=== PATIENT | female | born 1945 | race African-American/Black ===

== ENCOUNTER 2019-06-19 05:50 | Emergency (ER) | payer OTHER ==
--- NOTE | 2019-06-19 07:13 | ER ---
Nurse's Notes [facility] Name: Jose David Santana Age: 73 yrs Sex: Female : 1945 Arrival Date: 06/19/2019 Time: 05:52 Bed 8 Private MD: Diagnosis: Essential (primary) hypertension Presentation: 06/19 06:08 Presenting complaint: Patient states: she has a hx of HTN and for the past few days her aa1 BP has been fluctuating upwards of the 150's/90's. Denies any CP, SOB, or dizziness. Transition of care: patient was not received from another setting of care. Onset of symptoms was May 16, 2019. Risk Assessment: Do you want to hurt yourself or someone else? Patient reports no desire to harm self or others. Initial Sepsis Screen: Does the patient meet any 2 criteria? No. Patient's initial sepsis screen is negative. Does the patient have a suspected source of infection? No. Patient's initial sepsis screen is negative. Care prior to arrival: None. 06:08 Method Of Arrival: Ambulatory aa1 06:08 Acuity: ANDREA 3 aa1 Historical: - Allergies: 06:12 No Known Allergies; aa1 - Home Meds: 06:12 aspirin 81 mg Oral TbEC 1 tab once daily [Active]; metformin 850 mg Oral tab 1 tab 2 aa1 times per day [Active]; Simvastatin Oral once daily [Active]; losartan oral oral [Active]; Chlorthalidone Oral [Active]; - PMHx: 06:12 Diabetes - NIDDM; Hypertension; CVA; aa1 - PSHx: 06:12 Hysterectomy; cyst removal from breast; aa1 - Immunization history:: Flu vaccine is not up to date. - Coronavirus screen:: The patient has NOT traveled to [place], [place], or [place] in the past 14 days. Proceed with normal triage process as indicated. - Social history:: Smoking status: Patient denies any tobacco usage or history of. - Ebola Screening: : No symptoms or risks identified at this time. Screenin:13 Abuse screen: Denies threats or abuse. Denies injuries from another. Nutritional aa1 screening: No deficits noted. Tuberculosis screening: No symptoms or risk factors identified. Fall Risk None identified. Assessment: 06:13 General: Appears in no apparent distress. comfortable, Behavior is calm, cooperative, aa1 appropriate for age. Pain: Denies pain. Neuro: Level of Consciousness is awake, alert, obeys commands, Oriented to person, place, time, situation, Cutter Grinder are equal bilaterally Moves all extremities. Full function Gait is steady, Speech is normal, Facial symmetry appears normal, Pupils are PERRLA, Intact Denies blurred vision dizziness, headache diplopia. Cardiovascular: Denies chest pain, diaphoresis, palpitations, shortness of breath, Heart tones S1 S2 present. Respiratory: Airway is patent Respiratory effort is even, unlabored, Respiratory pattern is regular, symmetrical. GI: No signs and/or symptoms were reported involving the gastrointestinal system. : No signs and/or symptoms were reported regarding the genitourinary system. EENT: No signs and/or symptoms were reported regarding the EENT system. Derm: Skin is intact, is healthy with good turgor, Skin is pink, warm \T\ dry. Musculoskeletal: Circulation, motion, and sensation intact. Capillary refill < 3 seconds. 06:47 Reassessment: Patient appears in no apparent distress at this time. Patient and/or aa1 family updated on plan of care and expected duration. Pain level reassessed. Patient is alert, oriented x 3, equal unlabored respirations, skin warm/dry/pink. Per STATISTICAL PROGRAMMER, will monitor pt BP and reassess for d/c. 07:15 Reassessment: Patient appears in no apparent distress at this time. Patient and/or hb family updated on plan of care and expected duration. Pain level reassessed. Patient is alert, oriented x 3, equal unlabored respirations, skin warm/dry/pink. Vital Signs: 06:12 BP 155 / 93; Pulse 77; Resp 16; Temp 98.0; Pulse Ox 99% on R/A; Weight 81.65 kg; Height aa1 5 ft. 9 in. (175.26 cm); Pain 0/10; 06:47 BP 129 / 85; Pulse 64; Resp 16; Pulse Ox 98% on R/A; Pain 0/10; aa1 07:15 BP 127 / 71; Pulse 65; Resp 15; Pulse Ox 100% on R/A; Pain 0/10; hb 06:12 Body Mass Index 26.58 (81.65 kg, 175.26 cm) aa1 ED Course: 05:52 Patient arrived in ED. cl3 05:59 Haylie Smallwood [facility]C [facility]. kb 05:59 Reid Rico MD is Attending Physician. kb 06:10 Triage completed. aa1 06:12 Arm band placed on right wrist. aa1 06:13 Patient has correct armband on for positive identification. Bed in low position. Call aa1 light in reach. Pulse ox on. NIBP on. 06:16 Yoanna Valerio, RN is Primary Nurse. aa1 06:17 EKG done, by ED staff, reviewed by Reid Rico MD. aa1 07:31 No provider procedures requiring assistance completed. Patient did not have IV access hb during this emergency room visit. Administered Medications: No medications were administered Outcome: 07:13 Discharge ordered by . kb 07:31 Discharged to home ambulatory, with significant other. hb 07:31 Condition: stable 07:31 Discharge instructions given to patient, Instructed on discharge instructions, follow up and referral plans. medication usage, Demonstrated understanding of instructions, follow-up care, medications. 07:32 Patient left the ED. hb Signatures: Haylie Smallwood FNP-C SOLE TIER-Ckb Yoanna Valerio, RN RN aa1 Jessica Irwin RN RN Jarett Reese cl3
--- NOTE | 2019-06-19 07:14 | EDPHYS ---
Physician Documentation [facility] Name: Jose David Santana Age: 73 yrs Sex: Female : 1945 Arrival Date: 06/19/2019 Time: 05:52 Bed 8 Private MD: SHAHLA Physician Reid Rico HPI: 06/19 06:11 This 73 yrs old Black Female presents to ER via Ambulatory with complaints of High kb Blood Pressure. 06:11 The patient has elevated blood pressure and discovered this at home, with a home kb device, at a physician's office. Onset: The symptoms/episode began/occurred 2 day(s) ago. Associated signs and symptoms: Pertinent positives: headache, Pertinent negatives: chest pain, dizziness, dyspnea, lightheadedness, nausea, visual changes, vomiting, weakness. Severity of symptoms: At its worst the blood pressure was 160/90, in the emergency department the blood pressure is 155/90. The patient has not experienced similar symptoms in the past. The patient has not recently seen a physician. Pt reports she noticed her BP was high (130\\E\\80) at her checkup on so she started taking it throughout the day on Friday and it remained high so she came in this morning. States she had a headache yesterday, but that has resolved. Denies any symptoms at this time. Reports her BP has been fluctuating since she started taking it, ranging from 120/80 to 160/90. Historical: - Allergies: 06:12 No Known Allergies; aa1 - Home Meds: 06:12 aspirin 81 mg Oral TbEC 1 tab once daily [Active]; metformin 850 mg Oral tab 1 tab 2 aa1 times per day [Active]; Simvastatin Oral once daily [Active]; losartan oral oral [Active]; Chlorthalidone Oral [Active]; - PMHx: 06:12 Diabetes - NIDDM; Hypertension; CVA; aa1 - PSHx: 06:12 Hysterectomy; cyst removal from breast; aa1 - Immunization history:: Flu vaccine is not up to date. - Coronavirus screen:: The patient has NOT traveled to [place], [place], or [place] in the past 14 days. Proceed with normal triage process as indicated. - Social history:: Smoking status: Patient denies any tobacco usage or history of. - Ebola Screening: : No symptoms or risks identified at this time. ROS: 06:27 Constitutional: Negative for fever, chills, and weight loss, Eyes: Negative for injury, kb pain, redness, and discharge, ENT: Negative for injury, pain, and discharge, Neck: Negative for injury, pain, and swelling, Cardiovascular: Negative for chest pain, palpitations, and edema, Respiratory: Negative for shortness of breath, cough, wheezing, and pleuritic chest pain, Abdomen/GI: Negative for abdominal pain, nausea, vomiting, diarrhea, and constipation, Back: Negative for injury and pain, MS/Extremity: Negative for injury and deformity, Skin: Negative for injury, rash, and discoloration, Neuro: Negative for headache, weakness, numbness, tingling, and seizure. Exam: 06:31 Constitutional: This is a well developed, well nourished patient who is awake, alert, kb and in no acute distress. Head/Face: Normocephalic, atraumatic. Eyes: Pupils equal round and reactive to light, extra-ocular motions intact. Lids and lashes normal. Conjunctiva and sclera are non-icteric and not injected. Cornea within normal limits. Periorbital areas with no swelling, redness, or edema. ENT: Nares patent. No nasal discharge, no septal abnormalities noted. Tympanic membranes are normal and external auditory canals are clear. Oropharynx with no redness, swelling, or masses, exudates, or evidence of obstruction, uvula midline. Mucous membranes moist. Neck: Trachea midline, no thyromegaly or masses palpated, and no cervical lymphadenopathy. Supple, full range of motion without nuchal rigidity, or vertebral point tenderness. No Meningismus. Chest/axilla: Normal chest wall appearance and motion. Nontender with no deformity. No lesions are appreciated. Cardiovascular: Regular rate and rhythm with a normal S1 and S2. No gallops, murmurs, or rubs. Normal PMI, no JVD. No pulse deficits. Respiratory: Lungs have equal breath sounds bilaterally, clear to auscultation and percussion. No rales, rhonchi or wheezes noted. No increased work of breathing, no retractions or nasal flaring. Abdomen/GI: Soft, non-tender, with normal bowel sounds. No distension or tympany. No guarding or rebound. No evidence of tenderness throughout. Skin: Warm, dry with normal turgor. Normal color with no rashes, no lesions, and no evidence of cellulitis. MS/ Extremity: Pulses equal, no cyanosis. Neurovascular intact. Full, normal range of motion. Neuro: Awake and alert, GCS 15, oriented to person, place, time, and situation. Cranial nerves II-XII grossly intact. Motor strength 5/5 in all extremities. Sensory grossly intact. Cerebellar exam normal. Normal gait. Vital Signs: 06:12 BP 155 / 93; Pulse 77; Resp 16; Temp 98.0; Pulse Ox 99% on R/A; Weight 81.65 kg; Height aa1 5 ft. 9 in. (175.26 cm); Pain 0/10; 06:47 BP 129 / 85; Pulse 64; Resp 16; Pulse Ox 98% on R/A; Pain 0/10; aa1 07:15 BP 127 / 71; Pulse 65; Resp 15; Pulse Ox 100% on R/A; Pain 0/10; hb 06:12 Body Mass Index 26.58 (81.65 kg, 175.26 cm) aa1 MDM: 05:59 Patient medically screened. kb 06:11 Data reviewed: vital signs, nurses notes. Data interpreted: Pulse oximetry: on room air kb is 100 %. Interpretation: normal. 06:43 ED course: BP now 129/85. Pt still has no complaints . kb 07:03 Counseling: I had a detailed discussion with the patient and/or guardian regarding: the kb historical points, exam findings, and any diagnostic results supporting the discharge/admit diagnosis, the need for outpatient follow up, a family practitioner, to return to the emergency department if symptoms worsen or persist or if there are any questions or concerns that arise at home. ED course: Discussed pt history and exam with Dr Hunt. Agrees with outpatient follow up with Dr Fisher. Pt has normal neuro and physical exam. Pt has no complaints. Pt denies any chest complaints, including chest pain, palpitations, shortness of breath. Pt educated to keep BP log and follow up with dr Fisher for blood pressure management. Pt has been on valsartan for "a long time" for BP management. Pt educated to return for chest pain, headache or any other symptoms. Pt had routine blood work completed on . 07:11 ED course: BP 123/71. Pt has no complaints. Educated again on need to keep log and kb follow up with PCP, as well as to return if symptoms emerge such as headache, chest pain, weakness or any other concerns. Verbal understanding received. Discussed EKG with pt and she said Dr Mcneill has told her that she has an irregularity on past EKGs.. 06/19 06:09 Order name: EKG; Complete Time: 06:12 kb 06/19 06:09 Order name: EKG - Nurse/Tech; Complete Time: 06:16 kb Administered Medications: No medications were administered Disposition: 09:21 Co-signature as Attending Physician, Reid Rico MD I agree with the assessment and jermaine plan of care. Disposition: 06/19/19 07:13 Discharged to Home. Impression: Essential (primary) hypertension. - Condition is Stable. - Discharge Instructions: Hypertension, [id number], Managing Your Hypertension. - Medication Reconciliation Form, Thank You Letter, Antibiotic Education, Prescription Opioid Use form. - Follow up: Emergency Department; When: As needed; Reason: Worsening of condition. Follow up: Private Physician; When: 2 - 3 days; Reason: Recheck today's complaints, Continuance of care, Re-evaluation by your physician. Signatures: Haylie Smallwood, AUTOMOTIVE SERVICE CONSULTANT-C AUTOMOTIVE SERVICE CONSULTANT-Ckb Yoanna Valerio RN RN aa1 Reid Rico MD MD cha Baxter, Heather RN RN Corrections: (The following items were deleted from the chart) 06:31 06:27 Constitutional: Negative for fever, chills, and weight loss, ENT: Negative for kb injury, pain, and discharge, Neck: Negative for injury, pain, and swelling, Cardiovascular: Negative for chest pain, palpitations, and edema, Respiratory: Negative for shortness of breath, cough, wheezing, and pleuritic chest pain, Abdomen/GI: Negative for abdominal pain, nausea, vomiting, diarrhea, and constipation, Back: Negative for injury and pain, MS/Extremity: Negative for injury and deformity, Skin: Negative for injury, rash, and discoloration, Neuro: Negative for headache, weakness, numbness, tingling, and seizure, kb 07:16 07:11 ED course: BP 123/71. Pt has no complaints. Educated again on need to keep log kb and follow up with PCP, as well as to return if symptoms emerge such as headache, chest pain, weakness or any other concerns. Verbal understanding received. . hany 07:32 07:13 06/19/2019 07:13 Discharged to Home. Impression: Essential (primary) hb hypertension. Condition is Stable. Forms are Medication Reconciliation Form, Thank You Letter, Antibiotic Education, Prescription Opioid Use. Follow up: Emergency Department; When: As needed; Reason: Worsening of condition. Follow up: Private Physician; When: 2 - 3 days; Reason: Recheck today's complaints, Continuance of care, Re-evaluation by your physician. kb
[2019-06-19 07:38] VITALS: TEMP 98
[2019-06-19 07:40] VITALS: BP 127/71; O2SAT 100
--- NOTE | 2019-06-20 06:26 | EKG ---
Test Date: 2019-06-19 Test Time: 06:17:05 Box Attacher: ZA MEASUREMENT RESULTS: Intervals: Rate: 64 IA: 162 QRSD: 132 QT: 440 QTc: 453 [place]: P: 56 IA: 162 QRS: -26 T: 64 INTERPRETIVE STATEMENTS: Normal sinus rhythm Left bundle branch block Abnormal ECG No previous ECG available for comparison Electronically Signed On 06-20-19 06:25:58 TRACTION POWER ENGINEER by Carlos Wilder
== END 2019-06-19 07:32 | disposition home or self-care (01) ==
LOC: ER 05:50
DX: I10 Essential (primary) hypertension (principal); E11.9 Type 2 diabetes mellitus without complications; Z79.82 Long term (current) use of aspirin
CPT/HCPCS: 93005; 99283